=== PATIENT | female | born 1995 | race Caucasian/White ===

== ENCOUNTER 2022-08-27 07:56 | Inpatient (IN) | payer OTHER ==
[2022-08-27] VITALS (26 sets, daily range): BP systolic 96–151; BP diastolic 55–96
[~2022-08-27] VITALS: Ht 157.5 cm; Wt 78.9 kg
[2022-08-27] MEDS ORDERED: HOME MED LIST COMPLETE! XX SCH (08:35)
[2022-08-27] MEDS ORDERED: OXYTOCIN DRIP 30 UNITS in IV 1 EA IV SCH ×5 (09:00→16:50)
[2022-08-27] MEDS ORDERED: LIDOCAINE 1% MDV 20ML VIAL INFIL PRN (09:00)
[2022-08-27] MEDS ORDERED: METHYLERGONOVINE MALEATE 0.2 MG/ML VIAL (J2210) IM PRN (09:00)
[2022-08-27] MEDS ORDERED: TRANEXAMIC ACID INJection 1,000 MG in NS 100 ML IV PRN (09:00)
[2022-08-27] MEDS ORDERED: OXYTOCIN INJ 10 UNITS/ML VIAL (J2590) IV PRN (09:00)
[2022-08-27] MEDS ORDERED: OXYTOCIN DRIP 30 UNITS in IV 1 EA IV PRN ×6 (09:00)
[2022-08-27 09:43] LABS: HEMATOCRIT 27.9 % (36.0-47.0); HEMOGLOBIN 9.4 g/dl (12.0-15.5); MEAN CORPUSCULAR HEMOGLOBIN 30.5 pg (27.0-33.0); MEAN CORPUSCULAR HGB CONC 33.7 g/dl (32.0-36.5); MEAN CORPUSCULAR VOLUME 90.6 fl (80.0-96.0); PLATELET COUNT, AUTOMATED 197 10^3/uL (150-450); RED BLOOD COUNT 3.08 10^6/uL (4.00-5.40); WHITE BLOOD COUNT 8.7 10^3/uL (4.0-10.0)
[2022-08-27] MEDS: LR 1,000 ML IV SCH ×2 (09:50→18:52)
[2022-08-27] MEDS ORDERED: ePHEDrine SULFATE 25 MG/5 ML(5MG/ML) SYRINGE IVP PRN (14:30)
[2022-08-27] MEDS ORDERED: EPIDURAL/PCA KEYS XX PRN (14:30)
[2022-08-27] MEDS ORDERED: diphenhydrAMINE 50MG/ML VIAL IV PRN (14:30)
[2022-08-27] MEDS ORDERED: ONDANSETRON 4MG 2ML VIAL IV PRN (14:30)
[2022-08-27] MEDS ORDERED: FENTANYL/ROPIVACAINE/NACL BAG 100 ML EPIDURAL SCH (14:30)
[2022-08-27] MEDS ORDERED: NALOXONE INJ 0.4MG/1ML VIAL (J2310 PER 1MG) IV PRN (14:30)
[2022-08-27] MEDS ORDERED: LR 500 ML IV PRN (14:30)
[2022-08-27] MEDS ORDERED: FENTANYL 2MCG/ML ROPIVACAINE 0.2% IN 0.9% NACL 100ML IVBAG As Ordered ONE (14:40)
[2022-08-27] MEDS ORDERED: ACETAMINOPHEN TAB 650MG DOSE (2X325MG) PO PRN (16:50)
[2022-08-27] MEDS ORDERED: ACETAMINOPHEN 500 MG TAB PO PRN (16:50)
[2022-08-27] MEDS ORDERED: IBUPROFEN 600MG TAB PO PRN (16:50)
[2022-08-27] MEDS ORDERED: DOCUSATE SODIUM 100MG CAPSULE PO PRN (16:50)
[2022-08-27] MEDS ORDERED: METHYLERGONOVINE MALEATE 0.2 MG TAB PO PRN (16:50)
[2022-08-27] MEDS ORDERED: RHOGAM 300 MCG (1500 IU) INJ (J2790) IM SCH (16:50)
[2022-08-27] MEDS ORDERED: DIBUCAINE 1% OINTMENT 30GM TOP PRN (16:50)
[2022-08-27] MEDS: IBUPROFEN 800 MG TAB PO PRN (19:43)
[2022-08-28] MEDS: IBUPROFEN 800 MG TAB PO PRN (05:36)
[2022-08-28 06:15] VITALS: BP 116/64
[2022-08-28] MEDS ORDERED: PRENATAL VITAMINS CHEWABLE TABLET PO SCH (09:00)
== END 2022-08-28 11:30 | disposition home or self-care (01) | DRG 807 ==
LOC: M LDI 07:56 → M OBS 18:38
PROVIDERS: ADMIT Advanced Practice Midwife; ATTEND Advanced Practice Midwife
PROC: 10E0XZZ Delivery of Products of Conception, External Approach (ICD-10-PCS; principal; 2022-08-27)
PROC: 3E033VJ Introduction of Other Hormone into Peripheral Vein, Percutaneous Approach (ICD-10-PCS; 2022-08-27)
DX: O36.5930 Maternal care for other known or suspected poor fetal growth, third trimester, not applicable or unspecified (principal); Z37.0 Single live birth; Z3A.39 39 weeks gestation of pregnancy